=== PATIENT | male | born 1955 | race Caucasian/White ===

== ENCOUNTER 2020-02-22 12:29 | Inpatient (IN) | payer OTHER ==
[~2020-02-22] VITALS: Ht 172.7 cm; Wt 123.5 kg
[2020-02-22] MEDS ORDERED: LOSA50TA88 PO (12:37)
[2020-02-22 13:01] LABS: BASO % 0.1 % (0.0-1.0); HEMATOCRIT 38.9 % (42.0-52.0); HEMOGLOBIN 13.3 g/dl (13.5-17.5); LYMPH # 1.1 10^3/uL (1.5-5.0); MEAN CORPUSCULAR HEMOGLOBIN 29.4 pg (27.0-33.0); MEAN CORPUSCULAR HGB CONC 34.2 g/dl (32.0-36.5); MEAN CORPUSCULAR VOLUME 85.9 fl (80.0-96.0); MONO # 1.3 10^3/uL (0.0-0.8); MONO % 6.1 % (0.0-5.0); NEUTROPHILS # 18.8 10^3/uL (1.5-8.5); NEUTROPHILS % 87.7 % (36.0-66.0); PLATELET COUNT, AUTOMATED 129 10^3/uL (150-450); RED BLOOD COUNT 4.53 10^6/uL (4.30-6.10); WHITE BLOOD COUNT 21.4 10^3/uL (4.0-10.0)
[2020-02-22 13:24] LABS: BLOOD UREA NITROGEN 11 MG/DL (7-18); CALCIUM LEVEL 8.5 MG/DL (8.8-10.2); CARBON DIOXIDE LEVEL 32 MEQ/L (21-32); CHLORIDE LEVEL 95 MEQ/L (98-107); CREATININE FOR GFR 1.26 MG/DL (0.70-1.30); GLOMERULAR FILTRATION RATE > 60.0 (>49); GLUCOSE, FASTING 136 MG/DL (70-100); POTASSIUM SERUM 3.5 MEQ/L (3.5-5.1); SODIUM LEVEL 131 MEQ/L (136-145)
[2020-02-22 13:31] LABS: ALT/SGPT 32 U/L (12-78); BILIRUBIN,DIRECT 0.5 MG/DL (0.0-0.2); BILIRUBIN,TOTAL 1.6 MG/DL (0.2-1.0); CK-MB VALUE MASS < 1.0 NG/ML (<3.6); CPK CREATINE PHOSPHOKINASE 87 U/L (39-308); MB/CK RELATIVE INDEX 1.15 (< OR =4); TOTAL PROTEIN 7.2 GM/DL (6.4-8.2); TROPONIN I < 0.02 NG/ML (< 0.10)
[2020-02-22 13:55] LABS: NT-PRO BNP 452 PG/ML (<125)
[2020-02-22] MEDS ORDERED: cefTRIAXone SOD 1 GM in D5W MINI-BAG PLUS 50 ML IV ONE (14:15)
[2020-02-22] MEDS ORDERED: DOXYCYCLINE HYCLATE 100 MG in D5W MINI-BAG PLUS 100 ML IV ONE (14:15)
[2020-02-22] MEDS ORDERED: ADV250INH INH (14:16)
[2020-02-22] MEDS ORDERED: SPIR12.9 INH (14:16)
--- NOTE | 2020-02-22 14:46 | REP ---
CHEST, PORTABLE: Two AP portable views of the chest are performed. There are no prior studies. The heart is at the upper limits of normal in size. There is mild calcification of the thoracic aorta. Mediastinal silhouette is otherwise unremarkable. There is mild right pleural fluid or thickening at the costophrenic angle. There is adjacent mild streaky infiltrate versus fibroatelectasis. No infiltrate is seen on the left. Electronically Signed by Manish Azul MD 02/22/2020 03:01 P
[2020-02-22 15:16] LABS: ABG BASE EXCESS 4.5 (-2.0-2.0); ABG HCO3 28.4 MEQ/L (22.0-26.0); ABG O2 SATURATION 99.3 % (95.0-99.0); ABG PARTIAL PRESSURE CO2 39.5 mmHg (35.0-45.0); ABG PARTIAL PRESSURE O2 183.3 mmHg (75.0-100.0); ABG STANDARD HCO3 28.6 MEQ/L (22.0-26.0); ABG TOTAL CO2 29.6 MEQ/L (23.0-31.0); ABG pH (ARTERIAL) 7.474 UNITS (7.350-7.450)
[2020-02-22] MEDS ORDERED: ALBUTEROL 90 MCG/ACT 8GM HFA INHALER INH PRN (16:15)
--- NOTE | 2020-02-22 16:59 | HPEPDOC ---
General Date of Admission 02/22/20 Date of Service: Feb 22, 2020 Chief Complaint The patient is a 64-year-old male admitted with a reason for visit of FEVER. Source: Patient History of Present Illness 64 year old male with PMH of COPD on home oxygen, CHF, hypertension presented to the ED with 2 days h/o high fevers of 102-103 at home with cough and SOB. He also complained of pain during urination for the same duration and high colored urine. Of Note he was visited by his brother in law about 10 days ago from [place] other than him everyone has been well. He has not travelled or gone outside. His resp panel wa negative. His UA was positive for nitrites and leukocyte esterase and very high WBCs. His CXR showed bibasal chronic changes and possibly some atelectasis or infiltrates at the right lower lobe. He is admitted for Pneumonia, UTI and rule out COVID-19 Home Medications Scheduled Losartan Potassium (Losartan Potassium) 50 Mg Tablet, 50 MG PO DAILY, (Reported) Salmeterol/Fluticasone (Advair 250-50 Diskus) 1 Each Blst.w.dev, 1 PUFF INH BID, (Reported) Tiotropium [place] (Spiriva Respimat) 4 Gm Mist.inhal, 2 PUFF INH DAILY, (Reported) Allergies Coded Allergies: No Known Allergies (Unverified , 02/22/20) Past Medical History Medical History COPD, Chronic resp failure with hypoxia, Morbid obesity, Hypertension, Prostate problems, CHF Family History Significant Family History: COPD, Hypertension (father) Social History * Smoker: former Smoker Alcohol: occationally Drugs: denies A-FIB/CHADSVASC A-FIB History Current/History of A-Fib/PAF?: No Review of Systems Constitutional: Reports: Fatigue; Denies: Chills, Fever Eyes: Denies: Pain, Vision change ENT: Denies: Head Aches, Ear Pain, Dysphagia Skin: Denies: Rash, Lesions, Breakdown Pulmonary: Reports: Dyspnea, Cough Cardiovascular: Denies: Chest Pain, Palpitations, Orthopnea, Paroxysmal Noc. Dyspnea, Lt Headedness Gastrointestinal: Denies: Nausea, Vomiting, Abdominal Pain, Diarrhea Genitourinary: Reports: Dysuria Hematologic: Denies: Bruising, Bleeding Excessively Musculoskeletal: Denies: Neck Pain, Back Pain, Joint Pain, Muscle Pain, Spasms Physical Examination General Exam: Positive: Alert, Cooperative, Mild Distress Eye Exam: Positive: PERRLA, Conjunctiva & lids normal, EOMI; Negative: Sclera icteric ENT Exam: Positive: Atraumatic, Mucous membr. moist/pink, Pharynx Normal Neck Exam: Positive: Supple; Negative: JVD, thyromegaly Chest Exam: Positive: Rales (at the bases), Diminished; Negative: Rhonchi, Wheezing Heart Exam: Positive: Rate Normal, Regular Rhythm, Normal S1, Normal S2; Negative: Murmurs, Rubs Abdomen Exam: Positive: Normal bowel sounds, Soft, Other (obese); Negative: Tenderness, Hepatospenomegaly Extremity Exam: Positive: Normal pulses; Negative: Clubbing, Cyanosis, Edema Skin Exam: Positive: Nl turgor and temperature; Negative: Breakdown, Lesion Vital Signs Vital Signs Date Time Temp Pulse Resp B/P (MAP) Pulse Ox O2 Delivery O2 Flow Rate FiO2 02/22/20 14:45 118/57 (77) 02/22/20 14:44 108 02/22/20 14:29 99 02/22/20 12:38 Nasal Cannula 3.0 02/22/20 12:34 99.6 24 Laboratory Data Labs 24H Laboratory Tests 2 02/22/20 12:26: Total Bilirubin 1.6H, Direct Bilirubin 0.5H, Aspartate Amino Transf (AST/SGOT) 16, Alanine Aminotransferase (ALT/SGPT) 32, Alkaline Phosphatase 60, Total Creatine Kinase 87, Creatine Kinase MB < 1.0, Creatine Kinase MB Relative Index 1.15, Troponin I < 0.02, QE-Tsa-M-Type Natriuretic Peptide 452H, Total Protein 7.2, Albumin 3.0L, Albumin/Globulin Ratio 0.71L 02/22/20 12:44: Lactic Acid Level 1.7 02/22/20 12:47: Immature Granulocyte % (Auto) 1.1, Neutrophils (%) (Auto) 87.7H, Lymphocytes (%) (Auto) 5.0L, Monocytes (%) (Auto) 6.1H, Eosinophils (%) (Auto) 0.0, Basophils (%) (Auto) 0.1, Neutrophils # (Auto) 18.8H, Lymphocytes # (Auto) 1.1L, Monocytes # (Auto) 1.3H, Eosinophils # (Auto) 0.0, Basophils # (Auto) 0.0, Nucleated Red Blood Cells % (auto) 0.0, Anion Gap 4L, Glomerular Filtration Rate > 60.0, Calcium Level 8.5L 02/22/20 15:02: Blood Gas Bicarbonate Standard 28.6H, Arterial Blood pH 7.474H, Arterial Blood P artial Pressure CO2 39.5, Arterial Blood Partial Pressure O2 183.3H, Arterial Blood Total CO2 29.6, Arterial Blood HCO3 28.4H, Arterial Blood Base Excess 4.5H, Arterial Blood Oxygen Saturation 99.3H 02/22/20 15:38: Urine Color YELLOW, Urine Appearance CLOUDYH, Urine pH 6.0, Urine Specific [place] 1.014, Urine Protein NEGATIVE, Urine Glucose (UA) NEGATIVE, Urine Ketones NEGATIVE, Urine Blood 2+H, Urine Nitrite POSITIVEH, Urine Bilirubin NEGATIVE, Urine Urobilinogen 2.0H, Urine Leukocyte Esterase 3+H, Urine WBC (Auto) TNTCH, Urine RBC (Auto) 6H, Urine Hyaline Casts (Auto) 0, Urine Bacteria (Auto) 2+H, Urine Squamous Epithelial Cells 0, Urine Sperm (Auto) CBC/BMP Laboratory Tests 02/22/20 12:47 Microbiology Microbiology 02/22/20 Urine Culture, Received Pending 02/22/20 Blood Culture, Received Pending 02/22/20 Respiratory Virus Panel (PCR) (IFTIKHAR) - Final, Complete 02/22/20 Blood Culture, Received Pending Assessment/Plan 64 year old male with PMH of COPD on home oxygen, CHF, hypertension presented to the ED with 2 days h/o high fevers of 102-103 at home with cough and SOB. He also complained of pain during urination for the same duration and high colored urine. Of Note he was visited by his brother in law about 10 days ago from [place] other than him everyone has been well. He has not travelled or gone outside. His resp panel was negative. His UA was positive for nitrites and leukocyte esterase and very high WBCs. His CXR showed bibasal chronic changes a nd possibly some atelectasis or infiltrates at the right lower lobe. He is admitted for Pneumonia, UTI and rule out COVID-19. Patient moved up from [facility] in December to be near his daughters. Possible pneumonia continue ceftriaxone and doxycycline IVF. blood cultures ordered UTI continue ceftriaxone cultures have been sent. Respiratory infection negative Resp panel will rule out for COVID -19 as he was visited by relative from [place] about 10 days ago. COPD with chronic hypoxic respiratory failure continue advair and spiriva, oxygen supplementation Hypertension Bp well controlled will hold losartan for now. CHF not in any exacerbation will give fluid cautiously and monitor for overload Morbid obesity possibly may have undiagnosed KAYCEE due to his body habitus will place on KAYCEE protocol. Plan / VTE VTE Prophylaxis Ordered?: Yes RONDA SMITH MD Feb 22, 2020 16:59
[2020-02-22 18:23] VITALS: BP 122/62
[2020-02-22] MEDS: NS 1,000 ML IV SCH (18:30)
[2020-02-22] MEDS: ADVAIR HFA 115/21MCG INHALER INH SCH (20:45)
[2020-02-22] MEDS: DOXYCYCLINE HYCLATE 100MG TABLET PO SCH (21:49)
[2020-02-23] VITALS: BP 124/74
[2020-02-23] MEDS: ACETAMINOPHEN TAB 650MG DOSE (2X325MG) PO PRN (01:03)
[2020-02-23] MEDS: cefTRIAXone SOD 1 GM in D5W MINI-BAG PLUS 50 ML IV SCH ×2 (03:51→14:32)
[2020-02-23 04:00] VITALS: BP 132/80
[2020-02-23 06:31] LABS: BASO % 0.1 % (0.0-1.0); EOS % 0.1 % (0.0-3.0); HEMATOCRIT 39.9 % (42.0-52.0); HEMOGLOBIN 13.2 g/dl (13.5-17.5); LYMPH # 1.7 10^3/uL (1.5-5.0); LYMPH % 9.2 % (24.0-44.0); MEAN CORPUSCULAR HEMOGLOBIN 29.1 pg (27.0-33.0); MEAN CORPUSCULAR HGB CONC 33.1 g/dl (32.0-36.5); MEAN CORPUSCULAR VOLUME 88.1 fl (80.0-96.0); MONO # 1.1 10^3/uL (0.0-0.8); MONO % 5.8 % (0.0-5.0); NEUTROPHILS # 15.3 10^3/uL (1.5-8.5); PLATELET COUNT, AUTOMATED 134 10^3/uL (150-450); RED BLOOD COUNT 4.53 10^6/uL (4.30-6.10); WHITE BLOOD COUNT 18.3 10^3/uL (4.0-10.0)
[2020-02-23 06:58] LABS: BLOOD UREA NITROGEN 14 MG/DL (7-18); CALCIUM LEVEL 8.3 MG/DL (8.8-10.2); CARBON DIOXIDE LEVEL 33 MEQ/L (21-32); CHLORIDE LEVEL 95 MEQ/L (98-107); CREATININE FOR GFR 1.28 MG/DL (0.70-1.30); GLOMERULAR FILTRATION RATE > 60.0 (>49); GLUCOSE, FASTING 99 MG/DL (70-100); POTASSIUM SERUM 3.8 MEQ/L (3.5-5.1); SODIUM LEVEL 135 MEQ/L (136-145)
[2020-02-23] MEDS: ADVAIR HFA 115/21MCG INHALER INH SCH ×2 (07:23→20:34)
[2020-02-23] MEDS: TIOTROPIUM INHALER/CAPSULE (SPIRIVA) INH SCH (07:23)
[2020-02-23] MEDS: ENOXAPARIN 40MG/0.4ML SYRINGE (J1650 PER 10MG) SC SCH (07:43)
[2020-02-23] MEDS: NS 1,000 ML IV SCH ×2 (07:43→21:16)
[2020-02-23] MEDS: DOXYCYCLINE HYCLATE 100MG TABLET PO SCH ×2 (07:43→21:16)
[2020-02-23 07:45] VITALS: BP 128/66
[2020-02-23 13:30] VITALS: BP 132/64
--- NOTE | 2020-02-23 14:04 | IPNPDOC ---
Text Note Date of Service The patient was seen on 02/23/20. NOTE Subjective: No any acute events overnight. Patient denied fever, chills, nausea, vomiting, diarrhea. Patient continues to have dyspnea, he is on the 3 L of oxygen VITAL SIGNS: Please see below. GENERAL: awake, alert, NAD HEENT: NCAT, anicteric sclera, BEATRICE NECK: supple, no JVD CARDIOVASCULAR EXAMINATION: NS1S2, tachycardic RESPIRATORY EXAMINATION: Rales bilaterally at the base ABDOMINAL EXAMINATION: positive bowel sounds x 4, NT EXTREMITIES: no cyanosis, clubbing, edema SKIN: warm, no rashes. NEUROLOGICAL EXAMINATION: AAO x 3, no motor/sensory deficits PSYCHIATRIC EXAMINATION: calm, normal affect Assessment and plan Patient is 64 years old male with past medical history of COPD on home oxygen, CHF, hypertension presented hospital with sepsis secondary to COPD exacerbation versus pneumonia. Also patient was found to have pyuria. Sepsis Patient had tachypnea, tachycardia, leukocytosis and fever on admission Multifactorial and secondary to possible pneumonia or UTI First set of blood culture positive for gram positive cocci in clusters Continue antibiotic therapy Pneumonia Patient was admitted with cough, shortness of breath, leukocytosis and fever Chest XR: There is mild right pleural fluid or thickening at the costophrenic angle. There is adjacent mild streaky infiltrate versus fibroelastosis. No infiltrate is seen on the left. There is possibility for COVID 19, result pending Continue treatment with ceftriaxone and doxycycline UTI Patient complained of dysuria and urinalysis showed pyuria Continue antibiotics Hypertension Blood pressure under control CHF not in acute exacerbation Morbid obesity possibly may have undiagnosed KAYCEE due to his body habitus will place on KAYCEE protocol. VS,Fishbone, I+O VS, Fishbone, I+O Laboratory Tests 02/23/20 05:30 Vital Signs Date Time Temp Pulse Resp B/P (MAP) Pulse Ox O2 Delivery O2 Flow Rate FiO2 02/23/20 09:00 96 99 Nasal Cannula 3.0 02/23/20 07:45 96.8 20 128/66 (86) I&O- Last 24 Hours up to 6 AM 02/23/20 06:00 Intake Total 1262.5 ml Output Total 200 ml Balance 1062.5 ml ELODIA MATA DO Feb 23, 2020 14:04
--- NOTE | 2020-02-23 19:23 | ECGEPIP ---
[facility] - ED Test Date: 2020-02-22 Pat Name: SINAI ESPINAL Department: Room: - Gender: Male Pediatric Dental Hygienist: : 1955 Requested By: REILLY TSAI Order Number: [id number] Reading MD: Marianne Gottlieb Measurements Intervals [place] Rate: 108 P: 43 WI: 160 QRS: 51 QRSD: 93 T: 45 QT: 321 QTc: 431 Interpretive Statements SINUS TACHYCARDIA ABNORMAL RHYTHM ECG NSTTW abnormalities NO PRIOR Electronically Signed on 02-23-2020 19:23:05 EDT by Marianne Gottlieb
[2020-02-23 20:00] VITALS: BP 143/69
[2020-02-24] VITALS: BP 138/68
[2020-02-24 04:00] VITALS: BP 131/68
[2020-02-24] MEDS: cefTRIAXone SOD 1 GM in D5W MINI-BAG PLUS 50 ML IV SCH ×2 (04:11→16:35)
[2020-02-24 06:08] LABS: BASO % 0.4 % (0.0-1.0); EOS # 0.1 10^3/uL (0.0-0.5); EOS % 0.6 % (0.0-3.0); HEMATOCRIT 34.2 % (42.0-52.0); HEMOGLOBIN 11.1 g/dl (13.5-17.5); LYMPH % 12.1 % (24.0-44.0); MEAN CORPUSCULAR HEMOGLOBIN 28.4 pg (27.0-33.0); MEAN CORPUSCULAR HGB CONC 32.5 g/dl (32.0-36.5); MEAN CORPUSCULAR VOLUME 87.5 fl (80.0-96.0); MONO # 0.8 10^3/uL (0.0-0.8); MONO % 9.1 % (0.0-5.0); NEUTROPHILS # 6.4 10^3/uL (1.5-8.5); NEUTROPHILS % 77.2 % (36.0-66.0); PLATELET COUNT, AUTOMATED 136 10^3/uL (150-450); RED BLOOD COUNT 3.91 10^6/uL (4.30-6.10); WHITE BLOOD COUNT 8.3 10^3/uL (4.0-10.0)
[2020-02-24 06:17] LABS: BLOOD UREA NITROGEN 15 MG/DL (7-18); CALCIUM LEVEL 7.8 MG/DL (8.8-10.2); CARBON DIOXIDE LEVEL 33 MEQ/L (21-32); CHLORIDE LEVEL 98 MEQ/L (98-107); CREATININE FOR GFR 1.05 MG/DL (0.70-1.30); GLOMERULAR FILTRATION RATE > 60.0 (>49); GLUCOSE, FASTING 117 MG/DL (70-100); POTASSIUM SERUM 3.3 MEQ/L (3.5-5.1); SODIUM LEVEL 135 MEQ/L (136-145)
[2020-02-24] MEDS: DOXYCYCLINE HYCLATE 100MG TABLET PO SCH ×2 (07:44→20:00)
[2020-02-24] MEDS: ENOXAPARIN 40MG/0.4ML SYRINGE (J1650 PER 10MG) SC SCH (07:44)
[2020-02-24] MEDS: NS 1,000 ML IV SCH (07:44)
[2020-02-24 08:16] LABS: MAGNESIUM LEVEL 1.8 MG/DL (1.8-2.4)
[2020-02-24] MEDS ORDERED: CALCIUM GLUCONATE 1,000 MG in D5W MINI-BAG PLUS 100 ML IV ONE (09:00)
[2020-02-24] MEDS ORDERED: POTASSIUM CHLORIDE 10 MEQ SR TABLET PO ONE (09:00)
[2020-02-24] MEDS: ADVAIR HFA 115/21MCG INHALER INH SCH ×2 (09:30→20:14)
[2020-02-24] MEDS: TIOTROPIUM INHALER/CAPSULE (SPIRIVA) INH SCH (09:31)
--- NOTE | 2020-02-24 11:01 | IPNPDOC ---
Text Note Date of Service The patient was seen on 02/24/20. NOTE Subjective: No any acute events overnight. Patient denied fever, chills, nausea, vomiting, diarrhea. Patient is on 3 L of oxygen and 3 L of oxygen is his baseline VITAL SIGNS: Please see below. GENERAL: awake, alert, NAD HEENT: NCAT, anicteric sclera, BEATRICE NECK: supple, no JVD CARDIOVASCULAR EXAMINATION: NS1S2, tachycardic RESPIRATORY EXAMINATION: Rales bilaterally at the base ABDOMINAL EXAMINATION: positive bowel sounds x 4, NT EXTREMITIES: no cyanosis, clubbing, edema SKIN: warm, no rashes. NEUROLOGICAL EXAMINATION: AAO x 3, no motor/sensory deficits PSYCHIATRIC EXAMINATION: calm, normal affect Assessment and plan Patient is 64 years old male with past medical history of COPD on home oxygen, CHF, hypertension presented hospital with sepsis secondary to COPD exacerbation versus pneumonia. Also patient was found to have pyuria. Sepsis Resolved Patient had tachypnea, tachycardia, leukocytosis and fever on admission Multifactorial and secondary to possible pneumonia or UTI UA positive for Klebsiella pneumonia First set of blood culture positive for gram positive cocci in clusters, second set negative Continue antibiotic therapy No leukocytosis today Pneumonia Patient was admitted with cough, shortness of breath, leukocytosis and fever Chest XR: There is mild right pleural fluid or thickening at the costophrenic angle. There is adjacent mild streaky infiltrate versus fibroelastosis. No infiltrate is seen on the left. There is possibility for COVID 19, result pending Continue treatment with ceftriaxone and doxycycline UTI Patient complained of dysuria and urinalysis showed pyuria Continue antibiotics Hypertension Blood pressure under control CHF not in acute exacerbation Morbid obesity possibly may have undiagnosed KAYCEE due to his body habitus will place on KAYCEE protocol. Hypokalemia Replaced Deconditioning PT/OT evaluation VS,Fishbone, I+O VS, Fishbone, I+O Laboratory Tests 02/24/20 05:43 Vital Signs Date Time Temp Pulse Resp B/P (MAP) Pulse Ox O2 Delivery O2 Flow Rate FiO2 02/24/20 08:00 3.0 02/24/20 07:07 110 94 Nasal Cannula 02/24/20 07:07 96.8 20 02/24/20 04:00 131/68 (89) I&O- Last 24 Hours up to 6 AM 02/24/20 05:59 Intake Total 2605 ml Output Total 900 ml Balance 1705 ml ELODIA MATA DO Feb 24, 2020 11:00
[2020-02-24 11:30] VITALS: BP 116/67
[2020-02-24] MEDS: METOPROLOL TART 12.5 MG PER 1/2 TAB PO SCH ×2 (11:31→20:03)
[2020-02-24 16:49] VITALS: BP 150/82
[2020-02-24 22:00] VITALS: BP 126/78
[2020-02-25] MEDS: cefTRIAXone SOD 1 GM in D5W MINI-BAG PLUS 50 ML IV SCH (03:13)
[2020-02-25] MEDS: METOPROLOL TART 12.5 MG PER 1/2 TAB PO SCH ×3 (04:01→19:35)
[2020-02-25 06:00] VITALS: BP 124/76
[2020-02-25 07:15] LABS: BASO % 0.2 % (0.0-1.0); EOS # 0.1 10^3/uL (0.0-0.5); EOS % 1.8 % (0.0-3.0); HEMATOCRIT 35.1 % (42.0-52.0); HEMOGLOBIN 11.7 g/dl (13.5-17.5); LYMPH % 16.2 % (24.0-44.0); MEAN CORPUSCULAR HEMOGLOBIN 29.5 pg (27.0-33.0); MEAN CORPUSCULAR HGB CONC 33.3 g/dl (32.0-36.5); MEAN CORPUSCULAR VOLUME 88.4 fl (80.0-96.0); MONO # 0.9 10^3/uL (0.0-0.8); MONO % 13.8 % (0.0-5.0); NEUTROPHILS # 4.2 10^3/uL (1.5-8.5); NEUTROPHILS % 67.5 % (36.0-66.0); PLATELET COUNT, AUTOMATED 153 10^3/uL (150-450); RED BLOOD COUNT 3.97 10^6/uL (4.30-6.10); WHITE BLOOD COUNT 6.2 10^3/uL (4.0-10.0)
[2020-02-25 07:20] LABS: BLOOD UREA NITROGEN 12 MG/DL (7-18); CALCIUM LEVEL 8.1 MG/DL (8.8-10.2); CARBON DIOXIDE LEVEL 34 MEQ/L (21-32); CHLORIDE LEVEL 98 MEQ/L (98-107); CREATININE FOR GFR 1.01 MG/DL (0.70-1.30); GLOMERULAR FILTRATION RATE > 60.0 (>49); GLUCOSE, FASTING 110 MG/DL (70-100); POTASSIUM SERUM 3.7 MEQ/L (3.5-5.1); SODIUM LEVEL 137 MEQ/L (136-145)
[2020-02-25] MEDS: TIOTROPIUM INHALER/CAPSULE (SPIRIVA) INH SCH (08:06)
[2020-02-25] MEDS: ADVAIR HFA 115/21MCG INHALER INH SCH ×2 (08:07→19:54)
[2020-02-25] MEDS: ENOXAPARIN 40MG/0.4ML SYRINGE (J1650 PER 10MG) SC SCH (08:22)
[2020-02-25] MEDS: DOXYCYCLINE HYCLATE 100MG TABLET PO SCH (08:22)
[2020-02-25] MEDS: POTASSIUM CHLORIDE 10 MEQ SR TABLET PO SCH (09:16)
[2020-02-25 11:21] VITALS: BP 161/86
--- NOTE | 2020-02-25 12:51 | IPNPDOC ---
Text Note Date of Service The patient was seen on 02/25/20. NOTE Subjective: No any acute events overnight. Patient denied fever, chills, nausea, vomiting, diarrhea. Good appetite. Patient is on 3 L of oxygen and 3 L of oxygen is his baseline VITAL SIGNS: Please see below. GENERAL: awake, alert, NAD HEENT: NCAT, anicteric sclera, BEATRICE NECK: supple, no JVD CARDIOVASCULAR EXAMINATION: NS1S2, tachycardic RESPIRATORY EXAMINATION: Rales bilaterally at the base ABDOMINAL EXAMINATION: positive bowel sounds x 4, NT EXTREMITIES: no cyanosis, clubbing, edema SKIN: warm, no rashes. NEUROLOGICAL EXAMINATION: AAO x 3, no motor/sensory deficits PSYCHIATRIC EXAMINATION: calm, normal affect Assessment and plan Patient is 64 years old male with past medical history of COPD on home oxygen, CHF, hypertension presented hospital with sepsis secondary to COPD exacerbation versus pneumonia. Also patient was found to have pyuria. Sepsis Resolved Patient had tachypnea, tachycardia, leukocytosis and fever on admission Multifactorial and secondary to possible pneumonia or UTI UA positive for Klebsiella pneumonia First set of blood culture positive for gram positive cocci in clusters, second set negative No leukocytosis today Pneumonia Patient was admitted with cough, shortness of breath, leukocytosis and fever Chest XR: There is mild right pleural fluid or thickening at the costophrenic angle. There is adjacent mild streaky infiltrate versus fibroelastosis. No infiltrate is seen on the left. Covid test negative I changed antibiotics to levofloxacin PO UTI Patient complained of dysuria and urinalysis showed pyuria Continue antibiotics Hypertension Blood pressure under control CHF not in acute exacerbation Morbid obesity possibly may have undiagnosed KAYCEE due to his body habitus will place on KAYCEE protocol. Hypokalemia Replaced Deconditioning PT/OT evaluation VS,Fishbone, I+O VS, Fishbone, I+O Laboratory Tests 02/25/20 06:35 Vital Signs Date Time Temp Pulse Resp B/P (MAP) Pulse Ox O2 Delivery O2 Flow Rate FiO2 02/25/20 11:21 161/86 (111) 02/25/20 08:25 98.7 02/25/20 07:30 3.0 02/25/20 06:00 92 16 98 Nasal Cannula I&O- Last 24 Hours up to 6 AM 02/25/20 06:00 Intake Total 1030 ml Output Total 1275 ml Balance -245 ml DROZHZHIN,ELODIA DO Feb 25, 2020 12:51
[2020-02-25 14:00] VITALS: BP 150/74
[2020-02-25] MEDS: LevoFLOXacin 500 MG TABLET PO SCH (15:42)
[2020-02-25] MEDS: ACETAMINOPHEN TAB 650MG DOSE (2X325MG) PO PRN (22:08)
[2020-02-26] MEDS: METOPROLOL TART 12.5 MG PER 1/2 TAB PO SCH ×3 (03:59→20:21)
[2020-02-26] MEDS: ACETAMINOPHEN TAB 650MG DOSE (2X325MG) PO PRN ×2 (03:59→11:47)
[2020-02-26] MEDS: LevoFLOXacin 500 MG TABLET PO SCH (05:33)
[2020-02-26 06:00] VITALS: BP 147/83
[2020-02-26 06:03] LABS: BASO % 0.2 % (0.0-1.0); EOS # 0.1 10^3/uL (0.0-0.5); EOS % 0.9 % (0.0-3.0); HEMATOCRIT 34.8 % (42.0-52.0); HEMOGLOBIN 11.6 g/dl (13.5-17.5); LYMPH # 0.9 10^3/uL (1.5-5.0); MEAN CORPUSCULAR HEMOGLOBIN 29.7 pg (27.0-33.0); MEAN CORPUSCULAR HGB CONC 33.3 g/dl (32.0-36.5); MONO % 11.1 % (0.0-5.0); NEUTROPHILS # 6.9 10^3/uL (1.5-8.5); NEUTROPHILS % 77.1 % (36.0-66.0); PLATELET COUNT, AUTOMATED 153 10^3/uL (150-450); RED BLOOD COUNT 3.91 10^6/uL (4.30-6.10); WHITE BLOOD COUNT 8.9 10^3/uL (4.0-10.0)
[2020-02-26 06:21] LABS: BLOOD UREA NITROGEN 12 MG/DL (7-18); CALCIUM LEVEL 8.4 MG/DL (8.8-10.2); CARBON DIOXIDE LEVEL 33 MEQ/L (21-32); CHLORIDE LEVEL 96 MEQ/L (98-107); CREATININE FOR GFR 0.99 MG/DL (0.70-1.30); GLOMERULAR FILTRATION RATE > 60.0 (>49); GLUCOSE, FASTING 118 MG/DL (70-100); POTASSIUM SERUM 3.8 MEQ/L (3.5-5.1); SODIUM LEVEL 133 MEQ/L (136-145)
[2020-02-26] MEDS: ADVAIR HFA 115/21MCG INHALER INH SCH ×2 (07:16→21:30)
[2020-02-26] MEDS: TIOTROPIUM INHALER/CAPSULE (SPIRIVA) INH SCH (07:16)
[2020-02-26] MEDS: POTASSIUM CHLORIDE 10 MEQ SR TABLET PO SCH (08:19)
[2020-02-26] MEDS: ENOXAPARIN 40MG/0.4ML SYRINGE (J1650 PER 10MG) SC SCH (08:22)
--- NOTE | 2020-02-26 12:35 | IPNPDOC ---
Text Note Date of Service The patient was seen on 02/26/20. NOTE Subjective: Overnight patient developed spiking fever with chills. Fever subs ided after Tylenol. Patient denied any chest pain, shortness of breath, cough, diarrhea or dysuria. Patient is on 3 L of oxygen and 3 L of oxygen is his baseline VITAL SIGNS: Please see below. GENERAL: awake, alert, NAD HEENT: NCAT, anicteric sclera, BEATRICE NECK: supple, no JVD CARDIOVASCULAR EXAMINATION: NS1S2, tachycardic RESPIRATORY EXAMINATION: Rales bilaterally at the base ABDOMINAL EXAMINATION: positive bowel sounds x 4, NT EXTREMITIES: no cyanosis, clubbing, edema SKIN: warm, no rashes. NEUROLOGICAL EXAMINATION: AAO x 3, no motor/sensory deficits PSYCHIATRIC EXAMINATION: calm, normal affect Assessment and plan Patient is 64 years old male with past medical history of COPD on home oxygen, CHF, hypertension presented hospital with sepsis secondary to COPD exacerbation versus pneumonia. Also patient was found to have pyuria. Fever Unknown etiology for now. Patient developed spiking to overnight on 02/26/20 Blood culture pending Respiratory panel negative Will check chest x-ray I will restart IV antibiotic ceftriaxone and azithromycin IV fluid Sepsis Patient developed spiking fever overnight on 02/26/20 after ceftriaxone was stopped on 02/25/20 and levofloxacin initiated. Multifactorial and secondary to possible pneumonia or UTI UA positive for Klebsiella pneumonia First set of blood culture positive for gram positive cocci in clusters, second set negative Pneumonia Patient was admitted with cough, shortness of breath, leukocytosis and fever Chest XR: There is mild right pleural fluid or thickening at the costophrenic angle. There is adjacent mild streaky infiltrate versus fibroelastosis. No infiltrate is seen on the left. Covid test negative UTI Patient complained of dysuria and urinalysis showed pyuria Continue antibiotics Hypertension Blood pressure under control CHF not in acute exacerbation Morbid obesity possibly may have undiagnosed KAYCEE due to his body habitus will place on KAYCEE protocol. Hypokalemia Replaced Deconditioning PT/OT evaluation VS,Christopher, I+O VS, Christopher, I+O Laboratory Tests 02/26/20 05:26 Vital Signs Date Time Temp Pulse Resp B/P (MAP) Pulse Ox O2 Delivery O2 Flow Rate FiO2 02/26/20 11:49 78 155/89 02/26/20 10:30 100.0 02/26/20 06:00 20 95 Nasal Cannula 3.0 I&O- Last 24 Hours up to 6 AM 02/26/20 06:00 Intake Total 720 ml Output Total 1400 ml Balance -680 ml ELODIA MATA DO Feb 26, 2020 12:35
[2020-02-26] MEDS: NS 1,000 ML IV SCH ×2 (13:10→22:59)
[2020-02-26] MEDS: AZITHROMYCIN INJ 500 MG, VIAL MATE ADAPTER 1 EACH in D5W 250 ML IV SCH (13:10)
--- NOTE | 2020-02-26 13:36 | REP ---
CHEST, PORTABLE: Two AP portable views of the chest are performed and compared to a prior study of 02/22/2020. Heart and mediastinum are unchanged in appearance. No acute infiltrate is seen on the left. On the right there is again noted mild pleural thickening/fluid unchanged. There is again mild streaky density in the right lung base which appears somewhat improved, representing improvement of previously identified infiltrate. There does appear to be mild residual. Electronically Signed by Manish Azul MD 02/26/2020 03:32 P
[2020-02-26 14:00] VITALS: BP 146/82
[2020-02-26] MEDS: cefTRIAXone SOD 1 GM in D5W MINI-BAG PLUS 50 ML IV SCH (14:46)
[2020-02-26 22:00] VITALS: BP 141/83
[2020-02-27] MEDS: cefTRIAXone SOD 1 GM in D5W MINI-BAG PLUS 50 ML IV SCH ×2 (03:55→14:51)
[2020-02-27] MEDS: METOPROLOL TART 12.5 MG PER 1/2 TAB PO SCH ×3 (04:58→19:57)
[2020-02-27 06:00] VITALS: BP 145/72
[2020-02-27 06:07] LABS: BASO % 0.2 % (0.0-1.0); EOS # 0.1 10^3/uL (0.0-0.5); EOS % 1.2 % (0.0-3.0); HEMATOCRIT 34.5 % (42.0-52.0); HEMOGLOBIN 11.2 g/dl (13.5-17.5); LYMPH # 1.4 10^3/uL (1.5-5.0); LYMPH % 16.5 % (24.0-44.0); MEAN CORPUSCULAR HEMOGLOBIN 29.1 pg (27.0-33.0); MEAN CORPUSCULAR HGB CONC 32.5 g/dl (32.0-36.5); MEAN CORPUSCULAR VOLUME 89.6 fl (80.0-96.0); MONO % 11.8 % (0.0-5.0); NEUTROPHILS # 5.8 10^3/uL (1.5-8.5); NEUTROPHILS % 69.3 % (36.0-66.0); PLATELET COUNT, AUTOMATED 160 10^3/uL (150-450); RED BLOOD COUNT 3.85 10^6/uL (4.30-6.10); WHITE BLOOD COUNT 8.3 10^3/uL (4.0-10.0)
[2020-02-27 06:26] LABS: BLOOD UREA NITROGEN 8 MG/DL (7-18); CARBON DIOXIDE LEVEL 32 MEQ/L (21-32); CHLORIDE LEVEL 99 MEQ/L (98-107); GLOMERULAR FILTRATION RATE > 60.0 (>49); GLUCOSE, FASTING 110 MG/DL (70-100); POTASSIUM SERUM 4.1 MEQ/L (3.5-5.1); SODIUM LEVEL 136 MEQ/L (136-145)
[2020-02-27] MEDS: ADVAIR HFA 115/21MCG INHALER INH SCH ×2 (07:34→20:46)
[2020-02-27] MEDS: TIOTROPIUM INHALER/CAPSULE (SPIRIVA) INH SCH (07:34)
[2020-02-27] MEDS: ENOXAPARIN 40MG/0.4ML SYRINGE (J1650 PER 10MG) SC SCH (08:40)
[2020-02-27] MEDS: POTASSIUM CHLORIDE 10 MEQ SR TABLET PO SCH (08:40)
[2020-02-27] MEDS: NS 1,000 ML IV SCH ×3 (09:10→20:28)
[2020-02-27] MEDS: AZITHROMYCIN INJ 500 MG, VIAL MATE ADAPTER 1 EACH in D5W 250 ML IV SCH (13:08)
--- NOTE | 2020-02-27 13:27 | IPNPDOC ---
Text Note Date of Service The patient was seen on 02/27/20. NOTE Subjective: No fever for past 12 hours. Patient stated that he started feeling much better. Patient denied any chest pain, shortness of breath, cough, diarrhea or dysuria. Patient is on 3 L of oxygen and 3 L of oxygen is his baseline VITAL SIGNS: Please see below. GENERAL: awake, alert, NAD HEENT: NCAT, anicteric sclera, BEATRICE NECK: supple, no JVD CARDIOVASCULAR EXAMINATION: NS1S2, tachycardic RESPIRATORY EXAMINATION: Rales bilaterally at the base ABDOMINAL EXAMINATION: positive bowel sounds x 4, NT EXTREMITIES: no cyanosis, clubbing, edema SKIN: warm, no rashes. NEUROLOGICAL EXAMINATION: AAO x 3, no motor/sensory deficits PSYCHIATRIC EXAMINATION: calm, normal affect Assessment and plan Patient is 64 years old male with past medical history of COPD on home oxygen, CHF, hypertension presented hospital with sepsis secondary to COPD exacerbation versus pneumonia. Also patient was found to have pyuria. Fever Repeated Blood culture negative Respiratory panel negative Will check chest x-ray I restarted IV antibiotic ceftriaxone and azithromycin IV fluid Sepsis Resolved for now Patient developed spiking fever overnight on 02/26/20 after ceftriaxone was stopped on 02/25/20 and levofloxacin initiated. Ceftriaxone and azithromycin IV were re initiated on Multifactorial and secondary to possible pneumonia or UTI UA positive for Klebsiella pneumonia First set of blood culture positive for gram positive cocci in clusters, second set negative Pneumonia Patient was admitted with cough, shortness of breath, leukocytosis and fever Chest XR: There is mild right pleural fluid or thickening at the costophrenic angle. There is adjacent mild streaky infiltrate versus fibroelastosis. No infiltrate is seen on the left. Covid test negative UTI Patient complained of dysuria and urinalysis showed pyuria Continue antibiotics Hypertension Blood pressure under control CHF not in acute exacerbation Morbid obesity possibly may have undiagnosed KAYCEE due to his body habitus will place on KAYCEE protocol. Hypokalemia Replaced Deconditioning PT/OT evaluation VS,Bienvenidobone, I+O VS, Bienvenidobone, I+O Laboratory Tests 02/27/20 05:35 Vital Signs Date Time Temp Pulse Resp B/P (MAP) Pulse Ox O2 Delivery O2 Flow Rate FiO2 02/27/20 12:01 96 156/83 02/27/20 06:00 97.7 20 97 02/26/20 22:00 Nasal Cannula 3.0 I&O- Last 24 Hours up to 6 AM 02/27/20 06:00 Intake Total 2200 ml Output Total 2240 ml Balance -40 ml ELODIA MATA DO Feb 27, 2020 13:27
[2020-02-27 14:00] VITALS: BP 148/62
[2020-02-27] MEDS: CEPACOL LOZENGE MT PRN ×2 (14:51→23:58)
[2020-02-27 22:00] VITALS: BP 142/64
[2020-02-28] MEDS: cefTRIAXone SOD 1 GM in D5W MINI-BAG PLUS 50 ML IV SCH (03:43)
[2020-02-28] MEDS: METOPROLOL TART 12.5 MG PER 1/2 TAB PO SCH ×2 (03:43→13:15)
[2020-02-28 06:00] VITALS: BP 150/75
[2020-02-28 06:37] LABS: BASO % 0.4 % (0.0-1.0); EOS # 0.2 10^3/uL (0.0-0.5); EOS % 2.8 % (0.0-3.0); HEMOGLOBIN 11.4 g/dl (13.5-17.5); LYMPH # 1.5 10^3/uL (1.5-5.0); LYMPH % 19.4 % (24.0-44.0); MEAN CORPUSCULAR HEMOGLOBIN 29.1 pg (27.0-33.0); MEAN CORPUSCULAR HGB CONC 32.6 g/dl (32.0-36.5); MEAN CORPUSCULAR VOLUME 89.3 fl (80.0-96.0); MONO # 0.8 10^3/uL (0.0-0.8); MONO % 10.3 % (0.0-5.0); NEUTROPHILS % 65.8 % (36.0-66.0); PLATELET COUNT, AUTOMATED 198 10^3/uL (150-450); RED BLOOD COUNT 3.92 10^6/uL (4.30-6.10); WHITE BLOOD COUNT 7.6 10^3/uL (4.0-10.0)
[2020-02-28 06:58] LABS: BLOOD UREA NITROGEN 8 MG/DL (7-18); CALCIUM LEVEL 8.5 MG/DL (8.8-10.2); CARBON DIOXIDE LEVEL 34 MEQ/L (21-32); CHLORIDE LEVEL 98 MEQ/L (98-107); CREATININE FOR GFR 0.84 MG/DL (0.70-1.30); GLOMERULAR FILTRATION RATE > 60.0 (>49); GLUCOSE, FASTING 107 MG/DL (70-100); POTASSIUM SERUM 4.3 MEQ/L (3.5-5.1); SODIUM LEVEL 135 MEQ/L (136-145)
[2020-02-28] MEDS: TIOTROPIUM INHALER/CAPSULE (SPIRIVA) INH SCH (07:32)
[2020-02-28] MEDS: ADVAIR HFA 115/21MCG INHALER INH SCH (07:32)
[2020-02-28] MEDS: POTASSIUM CHLORIDE 10 MEQ SR TABLET PO SCH (08:08)
[2020-02-28] MEDS: ENOXAPARIN 40MG/0.4ML SYRINGE (J1650 PER 10MG) SC SCH (08:09)
[2020-02-28] MEDS ORDERED: AUGM875T28 PO (11:09)
[2020-02-28] MEDS ORDERED: TOPR25TA PO (11:09)
[2020-02-28] MEDS ORDERED: AZIT500T5 PO (11:09)
[2020-02-28] MEDS ORDERED: ATOR40TA75 PO (11:09)
[2020-02-28 13:15] VITALS: BP 168/90
[2020-02-28] MEDS: AZITHROMYCIN INJ 500 MG, VIAL MATE ADAPTER 1 EACH in D5W 250 ML IV SCH (13:17)
--- NOTE | 2020-02-28 14:22 | DS.PDOC ---
Discharge Summary General Date of Admission Feb 22, 2020 at 16:11 Date of Discharge 02/28/20 Discharge Summary PROCEDURES PERFORMED DURING STAY: [None]. ADMITTING DIAGNOSES: Fever Sepsis UTI Pneumonia Hypertension CHF Deconditioning Hypokalemia Morbid obesity DISCHARGE DIAGNOSES: Fever Sepsis UTI Pneumonia Hypertension CHF Deconditioning Hypokalemia Morbid obesity COMPLICATIONS/CHIEF COMPLAINT: Pneumonia. HISTORY OF PRESENT ILLNESS:64 year old male with PMH of COPD on home oxygen, CHF, hypertension presented to the ED with 2 days h/o high fevers of 102-103 at home with cough and SOB. He also complained of pain during urination for the same duration and high colored urine. Of Note he was visited by his brother in law about 10 days ago from [place] other than him everyone has been well. He santoyo s not travelled or gone outside. His resp panel wa negative. His UA was positive for nitrites and leukocyte esterase and very high WBCs. His CXR showed bibasal chronic changes and possibly some atelectasis or infiltrates at the right lower lobe. He is admitted for Pneumonia, UTI HOSPITAL COURSE: During hospital stay with following issue addressed Fever Repeated Blood culture negative Respiratory panel negative Patient was treated with ceftriaxone and azithromycin IV fluid Sepsis Resolved for now Multifactorial and secondary to possible pneumonia or UTI UA positive for Klebsiella pneumonia First set of blood culture positive for gram positive cocci in clusters, second set negative. Patient received treatment with antibiotic therapy Pneumonia Patient was admitted with cough, shortness of breath, leukocytosis and fever Chest XR: There is mild right pleural fluid or thickening at the costophrenic angle. There is adjacent mild streaky infiltrate versus fibroelastosis. No infiltrate is seen on the left. Covid test negative UTI Patient complained of dysuria and urinalysis showed pyuria Continue antibiotics DISCHARGE MEDICATIONS: Please see below. ALLERGIES: Please see below. PHYSICAL EXAMINATION ON DISCHARGE: VITAL SIGNS: Please see below. GENERAL: awake, alert, NAD HEENT: NCAT, anicteric sclera, BEATRICE NECK: supple, no JVD CARDIOVASCULAR EXAMINATION: NS1S2, tachycardic RESPIRATORY EXAMINATION: Rales bilaterally at the base ABDOMINAL EXAMINATION: positive bowel sounds x 4, NT EXTREMITIES: no cyanosis, clubbing, edema SKIN: warm, no rashes. NEUROLOGICAL EXAMINATION: AAO x 3, no motor/sensory deficits PSYCHIATRIC EXAMINATION: calm, normal affect LABORATORY DATA: Please see below. IMAGING: [facility] NAME: SINAI ESPINAL DATE OF : 1955 AGE: 64 SEX: M REPORT #: [id number] ROOM: [facility] TECHNOLOGIST: AGUILAR DOCTOR: ELODIA MATA DO Ordered for Date&Time: 02/26/20 1230 cc: [~ rep ct ivnm] Service Date&Time: 02/26/20 1247 This report is in Signed status. If this report is in a DRAFT status it has not yet been reviewed by the radiol ogist for accuracy. Thank you for having your radiology procedures performed at [facility] RADIOLOGY REPORT Date&Time printed: [~ rep prt dt last] [~ rep prt tm last] Page [address] [id number] RADIOLOGY REPORT This report is in Signed status. If this report is in a DRAFT status it has not yet been reviewed by the radiologist for accuracy. Thank you for having your radiology procedures performed at [facility] RADIOLOGY REPORT Date&Time printed: [~ rep prt dt last] [~ rep prt tm last] Page 1 of 1 CHEST, PORTABLE: Two AP portable views of the chest are performed and compared to a prior study of 02/22/2020. Heart and mediastinum are unchanged in appearance. No acute infiltrate is seen on the left. On the right there is again noted mild pleural thickening/fluid unchanged. There is again mild streaky density in the right lung base which appears somewhat improved, representing improvement of previously identified infiltrate. There does appear to be mild residual. Electronically Signed by Manish Azul MD 02/26/2020 03:32 P DD: Manish Azul MD, MD 02/26/20 1249 DT: TM 02/26/20 1336 DS: LUIS 02/26/20 1532 02/26/20 1532 [~ rep ct labl] PROGNOSIS: Fair ACTIVITY: [As tolerated]. DIET: Cardiac DISCHARGE PLAN: Follow-up with PCP DISPOSITION: Home DISCHARGE CONDITION: [Stable]. TIME SPENT ON DISCHARGE: Greater than 20 minutes. Vital Signs/I&Os Vital Signs Date Time Temp Pulse Resp B/P (MAP) Pulse Ox O2 Delivery O2 Flow Rate FiO2 02/28/20 13:15 88 168/90 02/28/20 09:00 3.0 02/28/20 06:00 98.6 19 97 Nasal Cannula I&O- Last 24 Hours up to 6 AM 02/28/20 06:00 Intake Total 3800 ml Output Total 2625 ml Balance 1175 ml Laboratory Data Labs 24H Laboratory Tests 2 02/28/20 05:53: Immature Granulocyte % (Auto) 1.3, Neutrophils (%) (Auto) 65.8, Lymphocytes (%) (Auto) 19.4L, Monocytes (%) (Auto) 10.3H, Eosinophils (%) (Auto) 2.8, Basophils (%) (Auto) 0.4, Neutrophils # (Auto) 5.0, Lymphocytes # (Auto) 1.5, Monocytes # (Auto) 0.8, Eosinophils # (Auto) 0.2, Basophils # (Auto) 0.0, Nucleated Red Blood Cells % (auto) 0.0, Anion Gap 3L, Glomerular Filtration Rate > 60.0, Calcium Level 8.5L CBC/BMP Laboratory Tests 02/28/20 05:53 Microbiology Microbiology 02/26/20 Respiratory Virus Panel (PCR) ([facility]) - Final, Complete 02/26/20 Blood Culture - Preliminary, Resulted No Growth after 48 hours. All Specime... 02/22/20 Urine Culture - Final, Complete Klebsiella Pneumoniae 02/22/20 Blood Culture - Final, Complete NO GROWTH AFTER 5 DAYS 02/22/20 Respiratory Virus Panel (PCR) ([facility]IKHAR) - Final, Complete 02/22/20 Blood Culture - Final, Complete Staphylococcus Epidermidis 02/22/20 Coronavirus COVID-19 PCR ([facility]) - Final, Complete Discharge Medications Scheduled Amoxicillin/Potassium Clav (Augmentin 875-125 Tablet) 1 Each Tablet, 1 TAB PO BID Atorvastatin Calcium (Atorvastatin Calcium) 40 Mg Tablet, 40 MG PO DAILY Azithromycin (Azithromycin) 500 Mg Tablet, 500 MG PO DAILY Losartan Potassium (Losartan Potassium) 50 Mg Tablet, 50 MG PO DAILY, (Reported) Metoprolol Succinate (Toprol Xl) 25 Mg Tab.er.24h, 1 TAB PO DAILY Salmeterol/Fluticasone (Advair 250-50 Diskus) 1 Each Blst.w.dev, 1 PUFF INH BID, (Reported) Tiotropium [place] (Spiriva Respimat) 4 Gm Mist.inhal, 2 PUFF INH DAILY, (Reported) Allergies Coded Allergies: No Known Allergies (Unverified , 02/22/20) ELODIA MATA DO Feb 28, 2020 14:22
== END 2020-02-28 15:33 | disposition home or self-care (01) | DRG 720 ==
LOC: M ED 12:29 → M ED INP 16:11 → ENRESERV 16:31 → M PCU 18:20 → M ICU 02-23 12:50 → M MSPAV 02-24 16:47
PROVIDERS: ADMIT Internal Medicine Nephrology; ATTEND Internal Medicine
DX: A41.9 Sepsis, unspecified organism (principal); J15.0 Pneumonia due to Klebsiella pneumoniae; J96.11 Chronic respiratory failure with hypoxia; I11.0 Hypertensive heart disease with heart failure; I50.9 Heart failure, unspecified; E66.01 Morbid (severe) obesity due to excess calories; Z68.41 Body mass index [BMI] 40.0-44.9, adult; J44.9 Chronic obstructive pulmonary disease, unspecified; N39.0 Urinary tract infection, site not specified; E87.6 Hypokalemia; Z79.899 Other long term (current) drug therapy; Z87.891 Personal history of nicotine dependence

== ENCOUNTER → 2020-04-24 | Outpatient (REF) | payer OTHER, MEDICAID ==
[~2020-04-24] MED LIST: ADV250INH INH; ATOR40TA75 PO; AUGM875T28 PO; AZIT500T5 PO; LOSA50TA88 PO; SPIR12.9 INH; TOPR25TA PO
[2020-04-24 16:40] LABS: BASO % 0.3 % (0.0-1.0); EOS # 0.1 10^3/uL (0.0-0.5); EOS % 1.5 % (0.0-3.0); HEMATOCRIT 37.8 % (42.0-52.0); HEMOGLOBIN 12.7 g/dl (13.5-17.5); LYMPH # 1.8 10^3/uL (1.5-5.0); LYMPH % 22.5 % (24.0-44.0); MEAN CORPUSCULAR HEMOGLOBIN 29.6 pg (27.0-33.0); MEAN CORPUSCULAR HGB CONC 33.6 g/dl (32.0-36.5); MEAN CORPUSCULAR VOLUME 88.1 fl (80.0-96.0); MONO # 0.5 10^3/uL (0.0-0.8); MONO % 6.3 % (0.0-5.0); NEUTROPHILS # 5.5 10^3/uL (1.5-8.5); NEUTROPHILS % 69.1 % (36.0-66.0); PLATELET COUNT, AUTOMATED 154 10^3/uL (150-450); RED BLOOD COUNT 4.29 10^6/uL (4.30-6.10); WHITE BLOOD COUNT 7.9 10^3/uL (4.0-10.0)
[2020-04-24 17:12] LABS: ALBUMIN 3.7 GM/DL (3.2-5.2); ALT/SGPT 32 U/L (12-78); BILIRUBIN,TOTAL 0.7 MG/DL (0.2-1.0); BLOOD UREA NITROGEN 9 MG/DL (7-18); CALCIUM LEVEL 8.9 MG/DL (8.8-10.2); CARBON DIOXIDE LEVEL 36 MEQ/L (21-32); CHLORIDE LEVEL 102 MEQ/L (98-107); CHOLESTEROL LEVEL 76 MG/DL (<200); CHOLESTEROL RISK RATIO 1.688 (<5); CREATININE FOR GFR 0.92 MG/DL (0.70-1.30); FREE T4 0.96 NG/DL (0.76-1.46); GLOMERULAR FILTRATION RATE > 60.0 (>49); GLUCOSE, FASTING 90 MG/DL (70-100); HDL CHOLESTEROL 45 MG/DL (>40); LDL CHOLESTEROL 12 MG/DL (<100); NON-HDL-C 31 MG/DL; POTASSIUM SERUM 4.1 MEQ/L (3.5-5.1); SODIUM LEVEL 139 MEQ/L (136-145); TOTAL 25(OH) VITAMIN D 15.4 NG/ML (30.0-100.0); TOTAL PROTEIN 7.2 GM/DL (6.4-8.2); TRIGLYCERIDES LEVEL 93 MG/DL (<150)
[2020-04-24 17:35] LABS: HEMOGLOBIN A1c 5.2 %
== END ==
LOC: M LAB REF 16:05
PROVIDERS: ATTEND Nurse Practitioner Family
DX: Z13.9 Encounter for screening, unspecified (principal); J43.8 Other emphysema; E66.01 Morbid (severe) obesity due to excess calories; J44.9 Chronic obstructive pulmonary disease, unspecified; I50.9 Heart failure, unspecified; I10 Essential (primary) hypertension